=== PATIENT | female | born 1980 | race Caucasian/White ===

== ENCOUNTER 2025-02-14 08:23 | Emergency (ER) | payer SELFPAY ==
[2025-02-14 08:34] VITALS: BP 160/93; PULSE 92; RESP 17; TEMP 36.8; O2SAT 97
[2025-02-14] MEDS: CLOTRIMAZOLE 10 MG TROC PO (09:17)
--- NOTE | 2025-02-14 13:32 | ED_ITS ---
HPI - General Adult General Chief complaint: Unspecified Stated complaint: throat discomfort, multiple complaints? Time Seen by Provider: 02/14/25 08:31 History of Present Illness HPI narrative: For last couple days, patient has noticed whitish crust on her tongue, she wiped it off and came back in the next day. Today noticed that it was also at the back of her throat, overall she states that it feels funny but does not hurt. No history of immunocompromised, no HIV or risky behaviors, not diabetic Related Data Allergies Allergy/AdvReac Type Severity Reaction Status Date / Time No Known Allergies Allergy Unknown Verified 02/14/25 08:37 Review of Systems Review of Systems: All systems reviewed & are unremarkable except as noted in HPI and below Exam Narrative: EXAMINATION OF ORGAN SYSTEMS/BODY AREAS: Constitutional: Vital signs per nursing GENERAL:[No acute distress, non-toxic appearing.] HEAD: Normal with no signs of head trauma. EYES: EOMI, conjunctiva normal ENT: Clear speech, no swelling of tonsils, whitish plaque to tongue, oropharynx LUNGS: Nonlabored breathing. HEART: [Regular rate and rhythm] ABD: [Soft], [nontender to palpation] EXT: Normal range of motion SKIN: [No rashes or lesions.] NEURO: [Alert and oriented x 3. No gross focal sensory or strength deficits.] PSYCH: Normal affect Course Vital Signs Vital signs: Vital Signs Temperature 98.2 F 02/14/25 08:34 Pulse Rate 92 02/14/25 08:34 Respiratory Rate 17 02/14/25 08:34 Blood Pressure 160/93 H 02/14/25 08:34 Pulse Oximetry 97 02/14/25 08:34 Oxygen Delivery Room Air 02/14/25 08:34 Temperature 98.2 F 02/14/25 08:34 Pulse Rate 92 02/14/25 08:34 Respiratory Rate 17 02/14/25 08:34 Blood Pressure 160/93 H 02/14/25 08:34 Pulse Oximetry 97 02/14/25 08:34 Oxygen Delivery Room Air 02/14/25 08:34 Medical Decision Making [facility] Narrative Medical decision making narrative: Patient presents with signs and symptoms consistent with thrush, she is very well appearing without any signs of airway compromise, she has no pain. I did check blood sugar here was normal, she denies any concern for possible HIV or other cause for being immunocompromised, I will treat her here for thrush but have her follow-up with ENT in case she needs further workup. Patient agreeable to plan. Vital Signs Vital Signs: Vital Signs Temperature 98.2 F 02/14/25 08:34 Pulse Rate 92 02/14/25 08:34 Respiratory Rate 17 02/14/25 08:34 Blood Pressure 160/93 H 02/14/25 08:34 Pulse Oximetry 97 02/14/25 08:34 Oxygen Delivery Room Air 02/14/25 08:34 Temperature 98.2 F 02/14/25 08:34 Pulse Rate 92 02/14/25 08:34 Respiratory Rate 17 02/14/25 08:34 Blood Pressure 160/93 H 02/14/25 08:34 Pulse Oximetry 97 02/14/25 08:34 Oxygen Delivery Room Air 02/14/25 08:34 Lab Data Labs: Lab Results 02/14/25 Range/Units 09:20 POC Capillary Glucose 109 H (65-105) mg/dl Discharge Plan Discharge Clinical Impression: Candidiasis of mouth Patient Disposition: Home Condition: Stable Instructions: Oral Candidiasis (ED) Additional Instructions: Please follow up with your doctor or ENT; you can always return for any further issues. Patient Language: Spanish Prescriptions: New clotrimazole 10 mg ekaterina 10 mg mucous membrane .5 times daily 10 Days Qty: 50 0RF Rx Instructions: Take 5 times daily for 7-10 days until symptoms resolve. 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
== END 2025-02-14 09:38 | disposition home or self-care (01) ==
PROVIDERS: Emergency Provider Emergency Medicine
DX: B37.0 Candidal stomatitis (principal)
CPT/HCPCS: 82948; 99283; A9270